=== PATIENT | female | born 1995 | race Caucasian/White ===

== ENCOUNTER 2019-01-22 05:26 | Emergency (ER) | payer MEDICAID, OTHER ==
[~2019-01-22] VITALS: Ht 154.9 cm; Wt 50.0 kg
[2019-01-22 05:34] VITALS: BP 137/94; PULSE 102; RESP 19; Ht 154.9 cm; Wt 50.0 kg
[2019-01-22] MEDS ORDERED: IBUPROFEN 600 MG TAB PO ONE (06:30)
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
[2019-01-22] MEDS ORDERED: IBUP-1542 PO (06:39)
[2019-01-22] MEDS ORDERED: CEPH-443 PO (06:39)
== END 2019-01-22 07:25 | disposition home or self-care (01) ==
LOC: E/R 05:26
DX: S61.210A Laceration without foreign body of right index finger without damage to nail, initial encounter (principal); J45.909 Unspecified asthma, uncomplicated; X99.1XXA Assault by knife, initial encounter
CPT/HCPCS: 73130; Z7502; Z7610